=== PATIENT | male | born 1975 ===

== ENCOUNTER 2024-10-22 14:43 | Inpatient (IN) | payer OTHER ==
[~2024-10-22] VITALS: Ht 182.9 cm; Wt 99.0 kg
[2024-10-22] MEDS ORDERED: MAGNESIUM HYDROXIDE SUSPENSION 30 ML UDCUP PO PRN (16:30)
[2024-10-22] MEDS ORDERED: SODIUM CHLORIDE 3% 15 ML NEB SOLUTION NEB ONE (17:39)
[2024-10-22] MEDS ORDERED: 0.9% SODIUM CHLORIDE 15 ML NEB SOLUTION NEB ONE (17:39)
[2024-10-22] MEDS: ACETAMINOPHEN 325 MG TABLET PO PRN (18:45)
[2024-10-22 20:23] VITALS: BP 102/66; PULSE 69; RESP 20; TEMP 97.9; O2SAT 96
[2024-10-22 21:43] LABS: MTB PCR w/Rif. Resistance-SPUT NOT DETECTED (Not Detectd)
[2024-10-22 23:54] VITALS: BP 116/70; PULSE 66; RESP 18; TEMP 97.9; O2SAT 95
[2024-10-23] VITALS (9 sets, daily range): BP systolic 94–136; BP diastolic 56–93; PULSE 62–96; RESP 17–19; TEMP 97.5–98.2; O2SAT 94–99
[2024-10-23] MEDS: ZOLPIDEM TARTRATE 5 MG TABLET PO PRN (00:27)
[2024-10-23 04:07] LABS: HIV 1-2 SCREEN 4TH GEN W/RFLX Non Reactive (Non Reactive)
[2024-10-23] MEDS ORDERED: SODIUM CHLORIDE 3% 15 ML NEB SOLUTION NEB ONE ×2 (05:39→13:50)
[2024-10-23 07:24] LABS: BASOPHILS % (AUTO) 0.7 % (0.0-2.0); EOSINOPHILS % (AUTO) 5.3 % (1.0-6.0); HEMATOCRIT 35.9 % (41-53); HEMOGLOBIN 12.2 g/dL (13.5-17.5); LYMPHOCYTES # (AUTO) 1.8 K/uL (1.0-4.8); LYMPHOCYTES % (AUTO) 33.1 % (22.0-44.0); MEAN CORPUSCULAR HEMOGLOBIN 30.5 pg (26.0-34.0); MEAN CORPUSCULAR VOLUME 90 fL (80-100); MONOCYTES # (AUTO) 0.8 K/uL (0.1-1.0); MONOCYTES % (AUTO) 14.9 % (2.0-9.0); NEUTROPHILS # (AUTO) 2.5 K/uL (1.8-7.7); PLATELET COUNT (AUTO) 328 K/uL (150-450); RED BLOOD CELL COUNT(AUTO) 4.01 MIL/uL (4.50-5.90); RED CELL DISTRIBUTION WIDTH 12.5 % (11.5-14.5); WHITE BLOOD COUNT (AUTO) 5.5 K/uL (4.5-11.0)
[2024-10-23 07:45] LABS: ANION GAP 9 mmol/L (8-16); CALCIUM, TOTAL 8.5 mg/dL (8.8-10.5); CARBON DIOXIDE 26 mmol/L (22-29); CHLORIDE 104 mmol/L (98-107); CREATININE 0.86 mg/dL (0.60-1.30); GLOMERULAR FILTR. RATE CALC > 60 mL/min (>60); GLUCOSE,RANDOM 100 mg/dL (70-110); POTASSIUM 3.7 mmol/L (3.5-5.1); SODIUM SERUM 139 mmol/L (136-145); UREA NITROGEN, BLOOD 10 mg/dL (7-18)
[2024-10-23] MEDS: FAMOTIDINE 20 MG TABLET PO SCH (08:31)
[2024-10-23 15:37] LABS: MTB PCR w/Rif. Resistance-SPUT NOT DETECTED (Not Detectd)
[2024-10-24 03:21] VITALS: BP 114/71; PULSE 68; RESP 17; TEMP 97.8; O2SAT 96
[2024-10-24 05:46] LABS: BASOPHILS % (AUTO) 0.8 % (0.0-2.0); EOSINOPHILS % (AUTO) 4.5 % (1.0-6.0); HEMATOCRIT 37.2 % (41-53); HEMOGLOBIN 12.6 g/dL (13.5-17.5); LYMPHOCYTES % (AUTO) 29.8 % (22.0-44.0); MEAN CORPUSCULAR HEMOGLOBIN 30.6 pg (26.0-34.0); MEAN CORPUSCULAR HGB CONC 33.9 G/dL (31.0-37.0); MEAN CORPUSCULAR VOLUME 90 fL (80-100); MONOCYTES # (AUTO) 0.8 K/uL (0.1-1.0); MONOCYTES % (AUTO) 12.3 % (2.0-9.0); NEUTROPHILS # (AUTO) 3.6 K/uL (1.8-7.7); NEUTROPHILS % (AUTO) 52.6 % (40.0-70.0); PLATELET COUNT (AUTO) 394 K/uL (150-450); RED BLOOD CELL COUNT(AUTO) 4.12 MIL/uL (4.50-5.90); RED CELL DISTRIBUTION WIDTH 12.7 % (11.5-14.5); WHITE BLOOD COUNT (AUTO) 6.8 K/uL (4.5-11.0)
[2024-10-24 06:04] LABS: ANION GAP 6 mmol/L (8-16); CALCIUM, TOTAL 8.5 mg/dL (8.8-10.5); CARBON DIOXIDE 27 mmol/L (22-29); CHLORIDE 105 mmol/L (98-107); CREATININE 0.84 mg/dL (0.60-1.30); GLOMERULAR FILTR. RATE CALC > 60 mL/min (>60); GLUCOSE,RANDOM 97 mg/dL (70-110); POTASSIUM 3.9 mmol/L (3.5-5.1); SODIUM SERUM 138 mmol/L (136-145); UREA NITROGEN, BLOOD 14 mg/dL (7-18)
[2024-10-24 08:00] VITALS: BP 112/71; PULSE 80; RESP 18; TEMP 97.8; O2SAT 96
[2024-10-24 12:03] VITALS: BP 121/76; PULSE 79; RESP 17; TEMP 98.6; O2SAT 95
[2024-10-24 16:00] VITALS: BP 117/83; PULSE 70; RESP 18; TEMP 97.2; O2SAT 96
[2024-10-24 19:45] VITALS: BP 129/85; PULSE 83; RESP 16; TEMP 97.7; O2SAT 98
[2024-10-24] MEDS: AMOX TR/POT CLAV 875 MG/125 MG TABLET PO SCH (20:09)
[2024-10-24 23:55] VITALS: BP 115/74; PULSE 72; RESP 14; TEMP 98; O2SAT 98
[2024-10-25 03:50] VITALS: BP 122/74; PULSE 66; RESP 17; TEMP 97.9; O2SAT 95
[2024-10-25 08:06] VITALS: BP 123/69; PULSE 55; RESP 18; TEMP 98.3; O2SAT 97
[2024-10-25 13:07] LABS: QUANTIFERON+,Mitogen Value 3.08 IU/mL; QUANTIFERON+,TB2 Antigen Value 0.02 IU/mL; QUANTIFERON, TB GOLD PLUS Negative (Negative)
[2024-10-25 19:48] VITALS: BP 101/64; PULSE 99; RESP 18; TEMP 97.7; O2SAT 96
[2024-10-26 04:10] VITALS: BP 101/64; PULSE 70; RESP 18; TEMP 97.6; O2SAT 96
[2024-10-26 07:25] VITALS: BP 96/48; PULSE 84; RESP 18; TEMP 97.8; O2SAT 96
[2024-10-26 09:12] LABS: BASOPHILS % (AUTO) 0.7 % (0.0-2.0); EOSINOPHILS % (AUTO) 2.7 % (1.0-6.0); HEMATOCRIT 42.3 % (41-53); HEMOGLOBIN 14.2 g/dL (13.5-17.5); LYMPHOCYTES # (AUTO) 1.6 K/uL (1.0-4.8); LYMPHOCYTES % (AUTO) 25.7 % (22.0-44.0); MEAN CORPUSCULAR HEMOGLOBIN 30.6 pg (26.0-34.0); MEAN CORPUSCULAR HGB CONC 33.6 G/dL (31.0-37.0); MEAN CORPUSCULAR VOLUME 91 fL (80-100); MONOCYTES # (AUTO) 0.5 K/uL (0.1-1.0); MONOCYTES % (AUTO) 7.7 % (2.0-9.0); NEUTROPHILS % (AUTO) 63.2 % (40.0-70.0); PLATELET COUNT (AUTO) 430 K/uL (150-450); RED BLOOD CELL COUNT(AUTO) 4.63 MIL/uL (4.50-5.90); RED CELL DISTRIBUTION WIDTH 12.8 % (11.5-14.5); WHITE BLOOD COUNT (AUTO) 6.4 K/uL (4.5-11.0)
[2024-10-26 09:21] LABS: ANION GAP 7 mmol/L (8-16); CALCIUM, TOTAL 8.7 mg/dL (8.8-10.5); CARBON DIOXIDE 30 mmol/L (22-29); CHLORIDE 100 mmol/L (98-107); CREATININE 1.14 mg/dL (0.60-1.30); GLOMERULAR FILTR. RATE CALC > 60 mL/min (>60); GLUCOSE,RANDOM 158 mg/dL (70-110); POTASSIUM 4.5 mmol/L (3.5-5.1); SODIUM SERUM 137 mmol/L (136-145); UREA NITROGEN, BLOOD 13 mg/dL (7-18)
[2024-10-26 16:27] VITALS: BP 108/69; PULSE 81; RESP 20; TEMP 97.8; O2SAT 98
[2024-10-26 19:50] VITALS: BP 101/71; PULSE 75; RESP 18; TEMP 98; O2SAT 100
[2024-10-27 20:11] VITALS: BP 100/80; PULSE 71; RESP 20; TEMP 98; O2SAT 97
[2024-10-27] MEDS: ZOLPIDEM TARTRATE 10 MG TABLET PO PRN (21:39)
[2024-10-28 04:00] VITALS: BP 103/69; PULSE 60; RESP 18; TEMP 97.6; O2SAT 97
[2024-10-28 08:00] VITALS: BP 112/68; PULSE 66; RESP 18; TEMP 97.8; O2SAT 95
[2024-10-28 19:44] VITALS: BP 118/71; PULSE 75; RESP 18; TEMP 98; O2SAT 96
[2024-10-29 05:12] VITALS: BP 103/69; PULSE 67; RESP 18; TEMP 97.6; O2SAT 96
[2024-10-29 20:07] VITALS: BP 106/71; PULSE 67; RESP 18; TEMP 97.9; O2SAT 95
[2024-10-29 21:38] LABS: APPEARANCE,URINE CLEAR (CLEAR); BILIRUBIN,URINE NEGATIVE (NEGATIVE); COLOR,URINE LIGHT YELLOW (YELLOW); GLUCOSE, URINE (UA) NEGATIVE (NEGATIVE); KETONES,URINE NEGATIVE (NEGATIVE); LEUKOCYTE ESTERASE ,URINE NEGATIVE (NEGATIVE); NITRATE,URINE NEGATIVE (NEGATIVE); OCCULT BLOOD,URINE NEGATIVE (NEGATIVE); PROTEIN,URINE NEGATIVE (NEGATIVE); SPECIFIC GRAVITIY, URINE 1.027 (1.003-1.030); UROBILINOGEN,URINE <=1.0 mg/dL (<=1.0)
[2024-10-30 05:11] VITALS: BP 104/73; PULSE 66; RESP 18; TEMP 97.7; O2SAT 98
[2024-10-30 07:30] VITALS: BP 106/50; PULSE 74; RESP 18; TEMP 98.2; O2SAT 98
[2024-10-30 20:16] VITALS: BP 124/82; PULSE 83; RESP 18; TEMP 98; O2SAT 100
[2024-10-31 04:34] VITALS: BP 110/72; PULSE 60; RESP 19; TEMP 97.8; O2SAT 98
[2024-10-31 07:59] VITALS: BP 106/70; PULSE 69; RESP 16; TEMP 98; O2SAT 97
[2024-10-31] MEDS ORDERED: DiphenhydrAMINE HCL 25 MG CAPSULE PO PRN (11:30)
[2024-10-31 19:29] VITALS: BP 108/77; PULSE 79; RESP 18; TEMP 98.4; O2SAT 96
[2024-11-01 04:44] VITALS: BP 107/75; PULSE 71; RESP 18; TEMP 97.9; O2SAT 97
== END 2024-11-01 19:33 | DRG 195 ==
LOC: EMS 14:43 → EDH 16:20 → 5N 17:37 → 6S 10-25 17:13
PROVIDERS: ADMIT Internal Medicine; ATTEND Internal Medicine
DX: J18.9 Pneumonia, unspecified organism (principal); J43.9 Emphysema, unspecified; J45.909 Unspecified asthma, uncomplicated; F14.90 Cocaine use, unspecified, uncomplicated; F32.9 Major depressive disorder, single episode, unspecified; Z87.891 Personal history of nicotine dependence
CPT/HCPCS: 70450; 71045; 71046; 71250; 80048; 81003; 84145; 85025; 86480; 87015; 87206; 87389; 87556; 94640; 99285; 36415-L1; 36415-TC